=== PATIENT | male | born 1990 | race American Indian/Alaskan Native ===

== ENCOUNTER 2021-11-30 06:22 | Emergency (ER) | payer OTHER ==
[2021-11-30 07:18] LABS: Hematocrit 42.9 % (35.5-45.6); Hemoglobin 14.4 gm/dl (11.8-15.2); Mean Corpuscular HGB Conc 34 % (32-34); Mean Corpuscular Volume 83 fl (84-94); Platelet Count 332 K/mm3 (140-440); Red Blood Count 5.18 M/mm3 (3.65-5.03); Red Cell Distribution Width 13.2 % (13.2-15.2)
[2021-11-30 07:42] LABS: Alanine Aminotransferase 15 units/L (7-56); Albumin 3.5 g/dL (3.9-5); BUN/Creatinine Ratio 12; Blood Urea Nitrogen 11 mg/dL (9-20); Calcium 9.1 mg/dL (8.4-10.2); Hemolysis Index 33
--- NOTE | 2021-11-30 10:16 | Emergency Department Report ---
ED N/V/D HPI - General Chief complaint: Abdominal Pain Stated complaint: ABD PAIN,DIARRHEA Time Seen by Provider: 11/30/21 09:54 Source: patient Mode of arrival: Ambulatory Limitations: No Limitations - History of Present Illness Initial comments: 31-year-old Mr. Joshua presents emergency department complaining of improving gastroenteritis which began after he consumed some checkers a few days ago. States that he normally does not eat that food and what he consumed he woke up the next day with an intestinal cramps associated with diarrhea and nausea. Symptoms continued for a few days to he noticed some streaks of blood in his diarrhea which improved when she started taking some antibiotics that his mom whom is a nurse have provided for him he also states that his mom have provided him with an antidiarrhea medication that has mitigated those symptoms. primary reason for him coming to the emergency department today (against advice of his mom) was to determine if he was a diabetic or not and to have his liver checked to see if it was an infected. He reports no polyuria or papillary polydipsia, no no bloating, no abdominal swelling, no new medications or alcohol abuse. No discoloration of skin or eyes MD complaint: nausea, diarrhea -: Gradual - Related Data Previous Rx's Medication Instructions Recorded Last Taken Type Hyoscyamine Subl [Levsin Sl 0.125 0.125 mg SL Q6HR PRN #20 tab 11/30/21 Unknown Rx TAB] Allergies Allergy/AdvReac Type Severity Reaction Status Date / Time amoxicillin Allergy Anaphylaxis Verified 11/30/21 06:39 ampicillin Allergy Anaphylaxis Verified 11/30/21 06:39 Penicillins AdvReac Anaphylaxis Verified 11/30/21 06:39 ED Review of Systems ROS: Stated complaint: ABD PAIN,DIARRHEA Other details as noted in HPI Comment: All other systems reviewed and negative ED Past Medical Hx - Medications Home Medications: Home Medications Medication Instructions Recorded Confirmed Last Taken Type Hyoscyamine Subl [Levsin Sl 0.125 0.125 mg SL Q6HR PRN #20 tab 11/30/21 Unknown Rx TAB] ED Physical Exam - General Limitations: No Limitations General appearance: alert, in no apparent distress - Head Head exam: Present: atraumatic, normocephalic - Eye Eye exam: Present: normal appearance, PERRL Pupils: Present: normal accommodation - ENT ENT exam: Present: normal exam, mucous membranes moist, TM's normal bilaterally - Neck Neck exam: Present: normal inspection, full ROM - Respiratory Respiratory exam: Present: normal lung sounds bilaterally. Absent: respiratory distress - Cardiovascular Cardiovascular Exam: Present: regular rate, normal rhythm. Absent: systolic murmur, diastolic murmur, rubs, gallop - GI/Abdominal GI/Abdominal exam: Present: soft, normal bowel sounds - Rectal Rectal exam: Present: deferred - Extremities Exam Extremities exam: Present: normal inspection - Back Exam Back exam: Present: normal inspection - Neurological Exam Neurological exam: Present: alert, oriented X3 - Psychiatric Psychiatric exam: Present: normal affect, normal mood - Skin Skin exam: Present: warm, dry, intact, normal color. Absent: rash ED Course Vital Signs 11/30/21 06:30 Temperature 98.4 F Pulse Rate 93 H Respiratory 16 Rate Blood Pressure 131/87 [Right] O2 Sat by Pulse 96 Oximetry ED Medical Decision Making - Lab Data Result diagrams: 11/30/21 06:40 11/30/21 06:40 Critical care attestation.: If time is entered above; I have spent that time in minutes in the direct care of this critically ill patient, excluding procedure time. ED Disposition Clinical Impression: Diarrhea, infectious, adult Disposition: 01 HOME / SELF CARE / HOMELESS Is pt being admited?: No Does the pt Need Aspirin: No Condition: Stable Instructions: Viral Gastroenteritis, Adult, Antibiotic Medicine, Adult, Diarrhea, Adult, [id number] Additional Instructions: Continue the antibiotics that you have already started to help to resolve your diarrhea. Past medication to help with the intestinal cramping. You can follow-up with your primary care provider to get a nonemergent evaluation for diabetes or a general routine liver check Prescriptions: Hyoscyamine Subl [Levsin Sl 0.125 TAB] 0.125 mg SL Q6HR PRN #20 tab PRN Reason: abdominal pain Referrals: RUDDY ASHLEY MD [Staff Physician] - 3-5 Days
[2021-11-30 10:22] VITALS: BP 141/65
== END 2021-11-30 10:22 | disposition home or self-care (01) ==
LOC: ED 06:22
DX: R19.7 Diarrhea, unspecified (principal); Z88.0 Allergy status to penicillin
CPT/HCPCS: 36415; 80053; 83690; 85027; 99283